=== PATIENT | male | born 1980 | race Caucasian/White ===

== ENCOUNTER 2019-11-25 14:40 | Emergency (ER) | payer OTHER ==
[~2019-11-25] VITALS: Ht 182.9 cm; Wt 96.2 kg
--- NOTE | 2019-11-25 14:46 | NUR ---
CALLED FOR TRIAGE, NOT IN WAITING ROOM.
[2019-11-25 16:19] VITALS: BP 142/80
== END 2019-11-25 16:20 | disposition home or self-care (01) ==
LOC: ER 14:48
DX: I10 Essential (primary) hypertension (principal)